=== PATIENT | female | born 1940 | race Caucasian/White ===

== ENCOUNTER 2020-06-24 07:05 | Inpatient (IN) ==
--- NOTE | 2020-06-18 10:19 | PAT Medication Instructions ---
Medication Instructions Date of Service June 18, 2020 Home Medications Ca carb-Ca gluc-Mg ox-Mg gluco [Calcium Magnesium] 1 tab PO QAM acetaminophen [Tylenol] 650 mg PO BID PRN cholecalciferol (vitamin D3) [Vitamin D3] 50 mcg PO QAM cyanocobalamin (vitamin B-12) 1,000 mcg SUBLINGUAL QAM DO NOT take the morning of surgery Ca carb-Ca gluc-Mg ox-Mg gluco [Calcium Magnesium] 1 tab PO QAM cholecalciferol (vitamin D3) [Vitamin D3] 50 mcg PO QAM cyanocobalamin (vitamin B-12) 1,000 mcg SUBLINGUAL QAM Take morning of surgery With a small sip of water, OTHERWISE NOTHING TO EAT OR DRINK AFTER MIDNIGHT: acetaminophen [Tylenol] 650 mg PO BID PRN (okay to take up to 4 hours prior to surgery if needed) Take evening before surgery acetaminophen [Tylenol] 650 mg PO BID PRN (if needed) Other Notes If you have any questions please call us at [phone] or [phone] or [phone] or [phone]
--- NOTE | 2020-06-18 11:16 | Anesthesiology Consultation ---
Date of Service June 18, 2020 Assessment & Plan (1) Encounter for pre-operative examination: - Per assessment on 06/18: Travel screen- Travel to [facility] for doctor appt. Patient had COVID exposure (family member visited and then later tested positive- one month ago). Patient had COVID testing one month ago d/t this exposure and result was negative. No current COVID-19 related symptoms. Patient scheduled for preop protocol COVID-19 testing 06/19 ([facility]). Awaiting results. - Anxious: Patient anxious regarding general anesthesia/ETT. Requesting LMA if possible. Advised patient that LMA vs. ETT at anesthesiologist/surgeon discretion AM DOS. To discuss further AM DOS. Chart Review Chart Review: Acceptable Risk for Surgery and Patient seen in Pre Admission Testing Teaching & Discussion Pre-Anesthesia Teaching/Discussion Notes: Instructed NPO after midnight before surgery,except medications with 15 cc of water. Medication instructions provided according to the PAT guidelines. History Surgery Operation Date: 06/24/20 09:45 Proposed Procedures p Right Reverse Total Shoulder Arthroplasty - Tushar Sue DO Height/Weight Height: 5 ft 2 in Weight: 77.1 kg Allergies Allergy/AdvReac Type Severity Reaction Status Date / Time adhesive tape Allergy Intermediate Skin Verified 06/18/20 11:12 redness Medications Home Medications Medication Instructions Recorded Confirmed Last Taken Ca carb-Ca gluc-Mg ox-Mg gluco 1 tab PO QAM 06/13/20 06/13/20 Unknown [Calcium Magnesium] acetaminophen [Tylenol] 650 mg PO BID PRN 06/13/20 06/13/20 Unknown cholecalciferol (vitamin D3) 50 mcg PO QAM 06/13/20 06/13/20 Unknown [Vitamin D3] cyanocobalamin (vitamin B-12) 1,000 mcg SUBLINGUAL QAM 06/13/20 06/13/20 Unknown Past Medical History Medical History Hyperlipidemia no meds Obesity Rotator cuff tear Exercise / Class Metabolic Activity II 4-5 Yardwork/Stairs/Walk up hill Past Surgical History Surgical History History of partial hysterectomy History of tooth extraction Past Anesthesia History No Hx of Anesthesia Complications Sister: "slow to wake"/no known hx if reintubation History of PONV No Hx of PONV and Hx of Motion Sickness Social History Smoking Status: Former smoker Do You Dip or Chew Tobacco: No Smoking End Date: Quit 30 years ago Hx Alcohol Use: Yes Alcohol type: wine alcohol intake frequency: holidays/special occasions only Hx Substance Use: No substance use type: does not use Review of Systems Patient denies chest pain, shortness of breath, dyspnea on exertion, fever, chills, cough, wheezing, palpitations. Physical Exam Vital Signs VITALS BP 147/69 P 78 TEMP 98.1 SP02 95%RA RESP 16 PHYSICAL Full neck and c-spine range of motion. Full TMJ range of motion. TMD 3 finger breaths Mallampati Score 2 Dentition: patient has upper denture (difficult to remove, very tight), lower denture (easier to remove) Lungs: clear throughout to auscultation Cardiac: regular rate and rhythm, no murmurs noted Spine: normal Carotid arteries: negative bruit Extremities: no edema Testing Laboratory Results 06/18/20 12:05 06/18/20 12:05 PT 10.3 Seconds (9.0-12.0) 06/18/20 12:05 INR 1.0 (0.9-1.1) 06/18/20 12:05 APTT 26.6 Seconds (21.0-31.0) 06/18/20 12:05 Blood Type A Positive 06/18/20 12:05 Antibody Screen NEGATIVE 06/18/20 12:05 Electrocardiogram Date: 06/18/20 Findings: + NSR @ (78) Chest X-Ray Date: 06/18/20 FINDINGS: PA and lateral chest radiographs are obtained. No prior studies are available for comparison at the time of dictation. The cardiomediastinal silhouette is unremarkable. The lungs and pleural spaces are clear. There is no pneumothorax. The skeletal structures are osteopenic. The bony thorax appears intact. Degenerative change and mild scoliosis is noted in the thoracic spine. IMPRESSION: No active disease in the chest.
--- NOTE | 2020-06-18 12:43 | XRay Report ---
TWO VIEW CHEST CLINICAL HISTORY: Preoperative examination. FINDINGS: PA and lateral chest radiographs are obtained. No prior studies are available for compariso n at the time of dictation. The cardiomediastinal silhouette is unremarkable. The lungs and pleural spaces are clear. There is no pneumothorax. The skeletal structures are osteopenic. The bony thorax appears intact. Degenerative change and mild scoliosis is noted in the thoracic spine. IMPRESSION: No active disease in the chest. ACT 112: Negative or not required by law. Electronically signed by: Smith Franco M.D. 06/18/2020 12:42 PM
[2020-06-18 13:00] LABS: Basophils # (auto) 0.05 K/uL (0-0.2); Basophils % (auto) 0.7 %; Eosinophils # (auto) 0.23 K/uL (0-0.5); Hematocrit (blood only) 42.2 % (37-47); Hemoglobin 13.8 g/dL (12.0-16.0); Immature Granulocytes # (auto) 0.01 K/uL (0.00-0.02); Immature Granulocytes % (auto) 0.1 %; Lymphocytes # (auto) 3.33 K/uL (1.2-3.4); Lymphocytes % (auto) 43.4 %; Mean Corpuscular Hemoglobin 30.5 pg (25-34); Mean Corpuscular Hgb Conc 32.7 g/dL (32-36); Mean Corpuscular Volume 93.2 fL (80-100); Mean Platelet Volume 9.7 fL (7.4-10.4); Monocytes # (auto) 0.53 K/uL (0.11-0.59); Monocytes % (auto) 6.9 %; Neutrophils # (auto) 3.53 K/uL (1.4-6.5); Neutrophils % (auto) 45.9 %; Platelet Count 293 K/uL (130-400); RDW Coefficient of Variation 13.9 % (11.5-14.5); RDW Standard Deviation 47.8 fL (36.4-46.3); Red Blood Count 4.53 M/uL (4.2-5.4); White Blood Count 7.68 K/uL (4.8-10.8)
[2020-06-18 13:13] LABS: BUN Creatinine Ratio 19.8 (10-20); Calcium 8.8 mg/dl (8.5-10.1); Creatinine Clr Calc Pharmacy 57.3 ml/min; Est GFR (African American) 83.7; Est GFR (Non-African American) 72.2; Potassium 4.6 mmol/L (3.5-5.1)
[2020-06-18 13:20] LABS: Partial Thromboplastin Time 26.6 Seconds (21.0-31.0); Prothrombin Time 10.3 Seconds (9.0-12.0)
--- NOTE | 2020-06-18 13:32 | Electrocardiogram Report ---
Test Reason : Blood Pressure : / mmHG Vent. Rate : 078 BPM Atrial Rate : 078 BPM P-R Int : 200 ms QRS Dur : 096 ms QT Int : 390 ms P-R-T Axes : 073 040 047 degrees QTc Int : 444 ms Normal sinus rhythm Normal ECG No previous ECGs available Confirmed by Vin Renee ([id number]) on 06/18/2020 1:32:12 PM Referred By: Tushar Sue Confirmed By:Vin Renee
--- NOTE | 2020-06-19 12:26 | History & Physical Report ---
Date of Service June 19, 2020 Assessment & Plan (1) Rotator cuff tear arthropathy of right shoulder: History of Present Illness Chief Complaint: Rotator cuff arthropathy of the right shoulder Primary Care Provider: Tavon Gonzales is a pleasant 79-year-old female who is been having a several month history of right shoulder pain. Started when she was trying to pull up her 's RAYMOND hose stockings after hip replacement surgery. I sent her for an MRI of her shoulder and the MRI showed a large retracted rotator cuff tear with severe atrophy. After failing conservative treatment, she has elected proceed with a right reverse shoulder arthroplasty. Allergies Allergy/AdvReac Type Severity Reaction Status Date / Time adhesive tape Allergy Intermediate Skin Verified 06/18/20 11:12 redness Home Medications Home Medications Medication Instructions Recorded Confirmed Type Ca carb-Ca gluc-Mg ox-Mg gluco 1 tab PO QAM 06/13/20 06/13/20 History [Calcium Magnesium] acetaminophen [Tylenol] 650 mg PO BID PRN 06/13/20 06/13/20 History cholecalciferol (vitamin D3) 50 mcg PO QAM 06/13/20 06/13/20 History [Vitamin D3] cyanocobalamin (vitamin B-12) 1,000 mcg SUBLINGUAL QAM 06/13/20 06/13/20 History Past Med/Surg History Medical History Hyperlipidemia no meds Obesity Rotator cuff tear Surgical History History of partial hysterectomy History of tooth extraction Social History Smoking Status: Former smoker Second Hand Exposure: No; Hx Alcohol Use: Yes Alcohol type: wine Hx Substance Use: No Preferred Language: Welsh Communication Ability: Effective Overedger Required: No Beliefs That Will Affect Care: None Current Living Situation: Spouse Feels Safe at Home: Yes Review of Systems Review of Systems: All systems reviewed & are unremarkable except as noted in HPI & below Physical Exam Constitutional: WD/WN, vitals as above Eyes: PERRL, conjunctivae normal, anicteric sclerae ENMT: external ear and nose normal, oropharynx normal Neck: trachea midline, no thyromegaly Respiratory: normal respiratory effort Cardiovascular: RRR, no murmur, no edema Gastrointestinal (Abdomen): normal bowel sounds, soft, nontender, no hepatosplenomegaly Musculoskeletal: Physical examination of the right shoulder reveals decreased range of motion and significant weakness. There is tenderness palpation along the anterior glenohumeral joint line. The right upper extremity is neurovascularly intact. Psychiatric: A+Ox3, euthymic affect Results & Data Results & Data ([facility]) Diagnostic Findings Radiographs of the right shoulder show some signs of osteoarthritis with blunting of the greater tuberosity and some superior migration of the humeral head on the glenoid. PG Care Time/CCT Total # of Minutes Spent Total Time Spent with Patient: Total time spent is greater than 50% in coordination of care (as documented) at patient's floor/unit and/or counseling patient: Coding Level of Care Code 33764 Initial Inpt Care Lvl 2 Diagnoses Rotator cuff tear arthropathy of right shoulder M75.101; M12.811
--- NOTE | 2020-06-19 12:27 | History & Physical Report ---
Date of Service June 19, 2020 Assessment & Plan (1) Rotator cuff tear arthropathy of right shoulder: We will proceed with a right reverse shoulder arthroplasty. Postoperatively she will be placed in a sling and kept overnight in the hospital for postoperative medical management. She will decide on her outpatient physical therapy with case management before discharge. Present on Admission?: Yes History of Present Illness Chief Complaint: Rotator cuff arthropathy of the right shoulder Primary Care Provider: Tavon Gonzales is a pleasant 79-year-old female who is been dealing with a several month history of right shoulder pain. It started when she was trying to pull up her 's RAYMOND hose stockings after hip replacement. She has been having pain in her shoulder since. MRI showed a massive retracted rotator cuff tear. After failing conservative treatment, she has elected proceed with a right reverse shoulder arthroplasty. Allergies Allergy/AdvReac Type Severity Reaction Status Date / Time adhesive tape Allergy Intermediate Skin Verified 06/18/20 11:12 redness Home Medications Home Medications Medication Instructions Recorded Confirmed Type Ca carb-Ca gluc-Mg ox-Mg gluco 1 tab PO QAM 06/13/20 06/13/20 History [Calcium Magnesium] acetaminophen [Tylenol] 650 mg PO BID PRN 06/13/20 06/13/20 History cholecalciferol (vitamin D3) 50 mcg PO QAM 06/13/20 06/13/20 History [Vitamin D3] cyanocobalamin (vitamin B-12) 1,000 mcg SUBLINGUAL QAM 06/13/20 06/13/20 History Past Med/Surg History Medical History Hyperlipidemia no meds Obesity Rotator cuff tear Surgical History History of partial hysterectomy History of tooth extraction Social History Smoking Status: Former smoker Second Hand Exposure: No; Hx Alcohol Use: Yes Alcohol type: wine Hx Substance Use: No Preferred Language: Citizen Of [place] Communication Ability: Effective Tuber Machine Operator Required: No Beliefs That Will Affect Care: None Current Living Situation: Spouse Feels Safe at Home: Yes Review of Systems Review of Systems: All systems reviewed & are unremarkable except as noted in HPI & below Physical Exam Constitutional: WD/WN, vitals as above Eyes: PERRL, conjunctivae normal, anicteric sclerae ENMT: external ear and nose normal, oropharynx normal Neck: trachea midline, no thyromegaly Respiratory: normal respiratory effort Cardiovascular: RRR, no murmur, no edema Gastrointestinal (Abdomen): normal bowel sounds, soft, nontender, no hepatosplenomegaly Musculoskeletal: Physical examination of the right shoulder reveals decreased range of motion and significant weakness. There is tenderness palpation along the anterior glenohumeral joint line. The right upper extremity is neurovascularly intact. Psychiatric: A+Ox3, euthymic affect Results & Data Results & Data ([place]) Diagnostic Findings Radiographs of the right shoulder show some signs of osteoarthritis with blunting of the greater tuberosity and some superior migration of the humeral head on the glenoid. PG Care Time/CCT Total # of Minutes Spent Total Time Spent with Patient: Total time spent is greater than 50% in coordination of care (as documented) at patient's floor/unit and/or counseling patient: Coding Level of Care Code 37914 Initial Inpt Care Lvl 2 Diagnoses Rotator cuff tear arthropathy of right shoulder M75.101; M12.811
[~2020-06-24 07:05] MED LIST: ACETAMINOPHEN 500 MG TAB PO SCH; BUPIVACAINE 0.5 % 5 MG/1 ML PF 10ML VIAL ONE; CEFAZOLIN 1000MG 1,000 MG/7.5 ML SYR IV SCH; FAMOTIDINE 20 MG TAB PO SCH; GABAPENTIN 300 MG CAP PO SCH; LR 15ML/HR IV SCH; LR 60ML/HR IV SCH; ROPIVACAINE 0.5% HCL/PF 150 MG, BUPIVACAINE 0.5% MPF 30 ML, EPINEPHrine 30MG/30ML (OR U... INSTIL SCH; TRANEXAMIC ACID 1,000 MG **IV Intra-op IV SCH; TRANEXAMIC ACID 1,000 MG **IV Pre-op IV SCH; dexAMETHasone 4 MG TAB PO SCH
[2020-06-24] MEDS ORDERED: NEOSTIGMINE METHYLSULFATE 5 MG/5 ML SYR ONE (08:00)
[2020-06-24] MEDS ORDERED: fentaNYL citrate 100 MCG/2 ML VIAL ONE (08:00)
[2020-06-24] MEDS ORDERED: DEXAMETHASONE SOD INJ 4 MG/ML VIAL ONE (08:00)
[2020-06-24] MEDS ORDERED: GLYCOPYRROLATE 0.2 MG/ML VIAL ONE ×2 (08:00→10:31)
[2020-06-24] MEDS ORDERED: MIDAZOLAM HCL 1 MG/ML 2ML VIAL ONE (08:00)
[2020-06-24] MEDS ORDERED: PROPOFOL IV EMULSION 10 MG/ML 20 ML VIAL IV ONE (08:00)
[2020-06-24] MEDS ORDERED: LIDOCAINE HCL 2% 2 ML VIAL/AMP(20MG/ML) INFIL ONE (08:00)
[2020-06-24] MEDS ORDERED: ONDANSETRON INJ 2 MG/ML 2 ML VIAL ONE (08:00)
[2020-06-24] MEDS ORDERED: METOCLOPRAMIDE HCL INJ 5 MG/ML 2 ML VIAL IV PRN ×2 (08:41→12:08)
[2020-06-24] MEDS ORDERED: ePHEDrine sulfate 50 MG/ML AMP IV PRN (08:41)
[2020-06-24] MEDS ORDERED: HYDROmorphone INJ 2 MG/ML SYR/VIAL IV PRN (08:41)
[2020-06-24] MEDS ORDERED: ATROPINE SULFATE 0.1 MG/ML 10ML SYR IV PRN (08:41)
[2020-06-24] MEDS ORDERED: ONDANSETRON INJ 2 MG/ML 2 ML VIAL IV PRN ×2 (08:41→12:08)
[2020-06-24] MEDS ORDERED: fentaNYL citrate 100 MCG/2 ML VIAL IV PRN (08:41)
[2020-06-24] MEDS ORDERED: PROMETHAZINE HCL 12.5 MG in SODIUM CHLORIDE 0.9% 50 ML IV PRN (08:41)
--- NOTE | 2020-06-24 08:54 | History & Physical Bridge Note ---
Date of Service June 24, 2020 History & Physical Bridge Note I have examined the patient, reviewed the History & Physical and in the interval since the performance of the History & Physical I have noted the following changes of clinical significance: no changes noted
[2020-06-24] MEDS ORDERED: ORTHO JOINT ANESTHETIC ONE (09:03)
[2020-06-24] MEDS ORDERED: LARYING-O-JET KIT (LTA) ONE (10:18)
[2020-06-24] MEDS ORDERED: ROCURONIUM BROMIDE 10 MG/ML 5 ML VIAL IV ONE (10:18)
--- NOTE | 2020-06-24 10:40 | Operative Report ---
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 I identified the patient and participated in the time-out.: Yes Procedure Operation Date: 06/24/20 09:30 Actual Procedures p Right Reverse Total Shoulder Arthroplasty with open biceps tenodesis as a distinct and separate procedure (modifier 59) (Right) - Tushar Sue DO Surgeon Tushar Sue DO Butcher Helper Tushar Dee PAC Estimated Blood Loss 200 Findings Consistent with Post-Op Diagnosis Specimens Right humeral head Complications none Disposition Disposition: Recovery Room Indications Janet is a pleasant 79-year-old female who presented my office with increasing right shoulder pain and weakness. She injured it pulling on her 's RAYMODN hose stockings. MRI showed a large retracted rotator cuff tear. After failing conservative treatment, she elected proceed with a right reverse shoulder arthroplasty. Description of Procedure A CPT code modifier 59: The long head of the biceps tendon was enlarged and inflamed consistent with tendinopathy. A tenodesis was opted. This was a separate and distinct portion of the procedure. For these reasons, a CPT code modifier 59 will be added to this case. Implants used: I used a [employer]omet Comprehensive reverse total shoulder arthroplasty system with a size 8 press fit micro humeral stem, a +6 humeral tray and a standard humeral bearing, a 25 mm small augment baseplate with a 6.5 mm central screw and superior and inferior locking screws, and a size 40 mm eccentric glenosphere. Body arrived at [facility] for the above procedure. She was seen in the preoperative holding area and the operative extremity was identified and signed. She was given a preoperative antibiotic, TXA, and an interscalene nerve block. She was taken back to the operating room, laid on table in supine position, and put under general anesthesia. She was then put into the beachchair position. The shoulder was then prepped and draped in sterile fashion. A timeout was done and the patient and the operative extremity was properly identified. A deltopectoral approach was used. Dissection was taken down through the fascia and the deltoid was retracted laterally and the conjoined tendon was retracted medially. The anterior shoulder was exposed. The biceps groove was opened up and the biceps tendon was examined extensively. The biceps tendon demonstrated enlargement and inflammatory changes consistent with longstanding inflammation in the context of osteoarthritis and cuff arthropathy. The long head of the biceps tendon was then tenodesed to the upper border of the pectoralis major. This was a separate and distinct portion of the procedure. The subscapularis was then directly released off the lesser tuberosity with a peel technique. The inferior capsule was released and the humeral head was dislocated. A canal finding reamer was sent down the center of the humeral canal. Sequ ential reaming up to a size 8 reamer was done. Off that reamer, a proximal humeral resection guide was placed. The proximal humerus was resected at 135 of inclination and 25 of retroversion. Osteophytes were then removed and the glenoid was exposed. Time was spent doing a complete capsular and labral release. The glenoid guide was then placed in the inferior aspect of the glenoid. A 3.2 mm Steinmann pin was then placed into the glenoid vault at 10 of inclination. The glenoid baseplate was then reamed. The final size 25 mm small augment baseplate was then impacted in the place. A 6.5 mm central screw was then placed followed by superior and inferior locking screws. A 40 mm eccentric glenosphere was then impacted into place. Surrounding soft tissues were then injected with 100 cc an orthopedic pain control cocktail. The proximal humerus was then exposed. Sequential broaching of the humerus up to a size 8 broach was done. Off that broach a +6 offset humeral tray was trialed. The shoulder was then reduced, brought through a full range of motion, and felt to be stable. The shoulder was then dislocated and the broach was removed. The final size 8 micro press-fit humeral stem was then impacted into place. A standard humeral bearing was then snapped onto a +6 humeral tray. The humeral tray was then impacted onto the humeral stem. The shoulder was once again reduced, brought through a full range of motion, and felt to be stable. The subscapularis was then tenodesed back to the lesser tuberosity with transosseous FiberWire sutures and side to side sutures with the arm in 45 of external rotation. A dilute betadyne lavage was then done for 3 minutes. The joint was then irrigated with normal saline solution. Hemostasis was obtained. The interval was closed with 2-0 Vicryl suture. The skin was then closed with 2-0 Vicryl and angle. A Silverlon dressing was placed and the arm was rested in a regular arm sling. She was then extubated and transferred to a hospital bed. She taken to the postanesthesia care unit in stable condition. She tolerated the procedure well. Tushar Dee PA-C, was present for the entire procedure. He was critical for pa tient positioning, prepping, draping, retraction exposure, wound closure and application of sterile dressing. I attest to the content of the Intraoperative Record and any orders documented therein. Any exceptions are noted below.
--- NOTE | 2020-06-24 11:37 | Anesthesiology Progress Note ---
Date of Service June 24, 2020 Anesthesia Post Procedure Vital Signs Vital Signs: Temp Pulse Pulse Resp BP Pulse Ox 06/24/20 11:30 79 17 137/82 93 06/24/20 11:20 82 17 135/87 93 06/24/20 11:10 84 18 145/95 H 98 06/24/20 11:01 36.2 C L 104 H 12 165/97 H 98 06/24/20 08:35 36.9 C 99 H 18 157/85 H 94 06/24/20 08:03 36.7 C 93 H 20 171/85 H 96 Transfer of Care Handoff Completed per policy Notes Mental Status: alert / awake / arousable and participated in evaluation Patient Amnestic to Procedure: Yes Nausea / Vomiting: adequately controlled Pain: adequately controlled Airway Patency, RR, SpO2: stable & adequate BP & HR: stable & adequate Hydration State: stable & adequate Anesthetic Complications: no major complications apparent
--- NOTE | 2020-06-24 11:49 | XRay Report ---
XR shoulder RT min 2V routine HISTORY: 79 years-old Female Post shoulder surgery right shoulder total joint arthroplasty COMPARISON: Chest radiograph 06/18/2020 TECHNIQUE: 2 views of the right shoulder FINDINGS: Reverse right shoulder total joint arthroplasty demonstrates satisfactory alignment. No acute fractur e or unexpected opaque foreign body. Lateral skin angle are noted along with expected postsurgical soft tissue swelling and deep tissue air. Moderate osteoarthritis of the right AC joint. Right lung b ase opacities suggest atelectasis. IMPRESSION: Reverse right shoulder total joint arthroplasty with expected postoperative changes. ACT 112: Negative or not required by law. The above report was generated using voice recognition software. It may contain grammatical, syntax o r spelling errors. Electronically signed by: Dylan Hinkle M.D. 06/24/2020 11:48 AM
[2020-06-24] MEDS ORDERED: NALOXONE HCL 0.4 MG/1 ML VIAL/CARP IV PRN (12:08)
[2020-06-24] MEDS ORDERED: OXYCODONE HCL IR 5 MG TAB (IMMEDIATE RELEASE) PO PRN (12:08)
[2020-06-24] MEDS ORDERED: bisacodyL 10 MG SUPP PR PRN (12:08)
[2020-06-24] MEDS ORDERED: HYDROmorphone INJ 0.5 MG/0.5 ML SYR IV PRN (12:08)
[2020-06-24] MEDS ORDERED: MAGNESIUM HYDROXIDE SUSP 30 ML UDC PO PRN (12:08)
[2020-06-24] MEDS ORDERED: SODIUM CHLORIDE 0.9% 1000ML 1,000 ML IV SCH (12:08)
[2020-06-24] MEDS: KETOROLAC TROMETHAMINE 15 MG/ML VIAL IV SCH ×2 (13:13→19:13)
[2020-06-24] MEDS: ACETAMINOPHEN 500 MG TAB PO SCH ×2 (13:13→21:03)
[2020-06-24] MEDS ORDERED: NURSING DECISION MEDICATION ONE (15:36)
[2020-06-24] MEDS ORDERED: COUGH DROP (SUGAR FREE) LOZ 24 LOZ/1 BOX BUCCAL PRN (15:37)
--- NOTE | 2020-06-24 17:00 | Orthopedic Progress Note ---
Date of Service June 24, 2020 Assessment & Plan (1) Status post reverse arthroplasty of right shoulder: Admission and Anticipated Discharge Date Admission Date: June 24, 2020 Results & Data ([facility]) Vital Signs (Past 12 Hours) Vital Signs Temp Pulse Pulse Resp BP Pulse Ox 06/24/20 15:24 36.8 C 83 18 116/75 91 06/24/20 13:12 36.5 C 84 16 106/70 96 06/24/20 12:41 36.5 C 75 16 129/75 93 06/24/20 12:00 36.4 C L 76 18 126/81 92 06/24/20 11:45 74 16 126/73 93 06/24/20 11:30 36.3 C L 79 17 137/82 93 06/24/20 11:20 82 17 135/87 93 06/24/20 11:10 84 18 145/95 H 98 06/24/20 11:01 36.2 C L 104 H 12 165/97 H 98 06/24/20 08:35 36.9 C 99 H 18 157/85 H 94 06/24/20 08:03 36.7 C 93 H 20 171/85 H 96 PG Care Time/CCT Total # of Minutes Spent Total Time Spent with Patient: Total time spent is greater than 50% in coordination of care (as documented) at patient's floor/unit and/or counseling patient: Coding Diagnoses Status post reverse arthroplasty of right shoulder Z96.611
[2020-06-24] MEDS: CEFAZOLIN 2000MG 2,000 MG/15 ML SYR IV SCH (19:12)
[2020-06-24] MEDS ORDERED: SENNA 8.6 MG TAB PO SCH (21:00)
[2020-06-24] MEDS: DOCUSATE SODIUM 100 MG CAP PO SCH (21:03)
[2020-06-25] MEDS: CEFAZOLIN 2000MG 2,000 MG/15 ML SYR IV SCH (00:07)
[2020-06-25] MEDS: KETOROLAC TROMETHAMINE 15 MG/ML VIAL IV SCH ×3 (00:07→12:38)
[2020-06-25] MEDS: ACETAMINOPHEN 500 MG TAB PO SCH (05:24)
[2020-06-25 06:03] LABS: Hematocrit (blood only) 39.6 % (37-47); Hemoglobin 12.9 g/dL (12.0-16.0); Immature Granulocytes # (auto) 0.02 K/uL (0.00-0.02); Immature Granulocytes % (auto) 0.1 %; Lymphocytes # (auto) 1.96 K/uL (1.2-3.4); Lymphocytes % (auto) 14.1 %; Mean Corpuscular Hemoglobin 30.4 pg (25-34); Mean Corpuscular Hgb Conc 32.6 g/dL (32-36); Mean Corpuscular Volume 93.2 fL (80-100); Mean Platelet Volume 9.5 fL (7.4-10.4); Monocytes # (auto) 0.87 K/uL (0.11-0.59); Monocytes % (auto) 6.3 %; Neutrophils # (auto) 11.06 K/uL (1.4-6.5); Neutrophils % (auto) 79.5 %; Platelet Count 298 K/uL (130-400); RDW Coefficient of Variation 14.1 % (11.5-14.5); RDW Standard Deviation 47.9 fL (36.4-46.3); Red Blood Count 4.25 M/uL (4.2-5.4); White Blood Count 13.91 K/uL (4.8-10.8)
[2020-06-25 06:29] LABS: BUN Creatinine Ratio 17.3 (10-20); Calcium 8.1 mg/dl (8.5-10.1); Creatinine Clr Calc Pharmacy 39.7 ml/min; Est GFR (African American) 53.7; Est GFR (Non-African American) 46.3; Potassium 3.9 mmol/L (3.5-5.1)
--- NOTE | 2020-06-25 07:05 | Orthopedic Progress Note ---
Date of Service June 25, 2020 Assessment & Plan (1) Status post reverse arthroplasty of right shoulder: Overall she is doing fairly well. The nursing staff will change her dressing 1 more time. She will be seen by physical therapy this morning for ambulation and range of motion exercises. She can be discharged home later today. She will follow-up with orthopedics in 2 weeks. Present on Admission?: No Admission and Anticipated Discharge Date Admission Date: June 24, 2020 Gerhard Gonzales was seen and examined at bedside this morning. Overall she is doing fairly well. She is not having too much pain in the right shoulder. She is having a little bit of bleeding from her dressing. Otherwise, she has no complaints. Physical Exam Musculoskeletal: On physical examination of the right shoulder, the Silverlon dressing is intact but there is some bloody drainage. The Silverlon has already been changed once. She is wearing her sling as instructed. Her radial, median, and ulnar nerves are checked and intact at her wrist. Results & Data ([facility]) Vital Signs (Past 12 Hours) Vital Signs Temp Pulse Resp BP Pulse Ox 06/25/20 03:30 36.4 C L 80 20 130/79 91 06/25/20 00:00 85 95 06/24/20 23:04 36.8 C 83 20 128/78 90 06/24/20 19:35 36.6 C 88 16 143/85 H 91 Laboratory Results H & H 06/18/20 06/25/20 Range/Units 12:05 05:41 Hgb 13.8 12.9 (12.0-16.0) g/dL Hct 42.2 39.6 (37-47) % Coagulation 06/18/20 Range/Units 12:05 INR 1.0 (0.9-1.1) Diagnostic Findings Postoperative x-rays of the right shoulder show the prosthesis to be in anatomic alignment without any evidence of fracture, dislocation, or loosening. PG Care Time/CCT Total # of Minutes Spent Total Time Spent with Patient: Total time spent is greater than 50% in coordination of care (as documented) at patient's floor/unit and/or counseling patient: Coding Level of Care Code None Diagnoses Status post reverse arthroplasty of right shoulder Z96.611
--- NOTE | 2020-06-25 07:06 | Discharge Summary ---
Date of Service June 25, 2020 Admission HPI Per Admitting Provider Janet is a pleasant 79-year-old female who is been dealing with a several month history of right shoulder pain. It started when she was trying to pull up her 's RAYMOND hose stockings after hip replacement. She has been having pain in her shoulder since. MRI showed a massive retracted rotator cuff tear. After failing conservative treatment, she has elected proceed with a right reverse shoulder arthroplasty. Principal Diagnosis Right reverse shoulder replacement Discharge Data Allergies Allergy/AdvReac Type Severity Reaction Status Date / Time adhesive tape Allergy Intermediate Skin Verified 06/24/20 07:32 redness Consultations 06/24/20 12:08 Consult Case Management - Discharge Planning Routine Procedures Performed Operation Date: 06/24/20 09:30 Actual Procedures p Right Reverse Total Shoulder Arthroplasty(Right) - Tushar Sue DO Ordered Studies 06/24/20 05:00 US - OR guided needle placemen Routine Hospital Course (1) Status post reverse arthroplasty of right shoulder: On June 24, 2020 Janet arrived at [facility] and underwent a right reverse shoulder arthroplasty without complication. She had a general anesthetic and a right interscalene nerve block. Postoperatively she was placed in a sling and transferred to the general orthopedic floors. Her hospital course was uneventful. On postop day #1 her H&H was stable and her pain was well controlled. She was able to participate well with physical therapy doing ambulation and range of motion exercises. She was then discharged to home. She will follow-up with orthopedics in 2 weeks. Total Time Total Time Spent Total Time Spent (In Minutes): 20 Discharge Plan Discharge Items Patient Disposition: Home - Home Health Services Reason For Visit: Right Shoulder Degenerative Joint Disease Discharge Diagnosis: Right reverse shoulder replacement Activity: As commented below Non-emergency contact: Surgeon Call non-emergency contact if: your wound has increased redness and your wound has increased drainage Follow-up/Referrals: Tavon De Los Santos [Primary Care Provider] - Diet: Regular Addtl Attending Provider Instructions: Activity and Therapy Recommendations: * If you are using [facility] then therapy will be provided at your home until they feel you have accomplished all of your goals. * If you are using [facility] then Physical Therapy will be provided until they feel you are ready to start Outpatient Physical Therapy. * If you are not using home therapy then Outpatient Physical Therapy should start about 3-5 days from your day of surgery. Therapy will last about 8-12 weeks * Wear your sling for 3 weeks, unless otherwise instructed. You may remove your sling to shower and to dress, but otherwise, you should be in your sling at all times, including while sleeping * The shoulder replacement is very stable and you can use your hand while in the sling * You were shown a series of exercises in the hospital. Do these exercises daily including the exercises you were shown in physical therapy. Medications: * Narcotic You will likely be sent home from the hospital with a prescription for the narcotic pain medication that worked best throughout your stay. * Other medications may be prescribed for specific circumstances. If you have any questions, please call the office at . * Resume previous home medications unless otherwise instructed Dressing Care: Leave the Silverlon dressing in place for 7 days. After 7 days you may remove the dressing. If the incision is not draining then you may leave the angle open to air. If there is a little bit of drainage or if the angle are getting stuck on your clothing then cover the incision with a dry dressing. The angle will be removed at your 2 week follow-up appointment. Showering: You may shower with the Silverlon dressing in place. Do not let the shower spray hit the dressing directly. Pat the Silverlon dressing dry. If the dressing becomes wet underneath, then simply remove the dressing. Keep the incision dry until you are 7 days out from the day of surgery. After 7 days you may remove the Silverlon dressing and shower with the angle exposed. Let soapy water run over the angle and pat them dry. Do not scrub or soak the incision. Things To Watch For: * Drainage from the incision site that occurs more than one week after your surgery. * Increased redness at the incision site. * Fever above 102 degrees Fahrenheit. * Unusual chest pain or shortness of breath. * Call [facility] at with any of the above problems Follow-Up Visit: Follow-up with Dr. Sue's PA (Tushar Dee) 2-3 weeks after your day of surgery. He will remove your angle and answer any questions. If you have any additional questions or concerns, Dr Vikram is usually in the office at the same time and will be available An appointment was probably scheduled when you signed-up for surgery in the office. If you have any questions call More detailed instructions as well as Frequently Asked Questions were provided in a folder by our office when you signed-up for surgery. Please review these instructions when you get home. If you have any further questions or concerns, please feel free to call the office at [phone] Pending Studies at Discharge: No Stand-Alone Forms: My [facility], Smoking Cessation Medications and DC Order Prescriptions: New tramadol 50 mg tablet 50 mg PO Q6H PRN (Reason: pain) Qty: 30 RF: 0 Continued acetaminophen [Tylenol] 325 mg Tablet 650 mg PO BID PRN (Reason: Pain) RF: 0 cholecalciferol (vitamin D3) [Vitamin D3] 50 mcg (2,000 unit) Tablet 50 mcg PO QAM RF: 0 cyanocobalamin (vitamin B-12) 1,000 mcg Tablet, Sublingual 1,000 mcg SUBLINGUAL QAM RF: 0 Calcium Magnesium 500 mg calcium -250 mg Tablet 1 tab PO QAM RF: 0 Discharge Orders: Discharge Order (Routine); Ordered 06/25/20 Ordered By: Tushar Sue Admission Data Admit Date/Time: 06/24/20 11:00 Attending Provider: Tushar Sue Admit Provider: Tushar Sue Primary Care Provider: Tavon De Los Santos Other Providers: S[facility] Coding Level of Care Code D/C Day Management <30 mins Diagnoses Status post reverse arthroplasty of right shoulder Z96.611
[2020-06-25] MEDS ORDERED: dexAMETHasone 4 MG TAB PO SCH (08:00)
[2020-06-25] MEDS: DOCUSATE SODIUM 100 MG CAP PO SCH (08:40)
[2020-06-25] MEDS ORDERED: MULTIVITAMIN TAB PO SCH (09:00)
== END 2020-06-25 13:10 | disposition home health service (06) | DRG 483 ==
LOC: ASU 07:05 → 3E 11:00